=== PATIENT | female | born 1970 | race Two or more races ===

== ENCOUNTER → 2023-12-16 | Outpatient (CLI) | payer MEDICAID ==
[~2023-12-16] VITALS: Ht 162.6 cm; Wt 152.4 kg
[~2023-12-16] MED LIST: CARB200T4 PO; FERR325T50 PO; FUR40T PO; IBUP-1456 PO; OMEP20CA74 OR; PILO7.5T4 PO; POTA8TAB38 PO; RANI75SY PO; REGADENOSON 0.4 MG/5 ML SYRG IV ONE
== END | disposition home or self-care (01) ==
LOC: XYW 08:42
PROVIDERS: ATTEND Specialist
DX: R07.9 Chest pain, unspecified (principal); R06.02 Shortness of breath; R00.2 Palpitations; I10 Essential (primary) hypertension; E66.01 Morbid (severe) obesity due to excess calories
CPT/HCPCS: 78452; 93017; A9500

== ENCOUNTER 2025-05-31 00:05 | Inpatient (IN) | payer MEDICAID ==
[~2025-05-31] VITALS: Ht 162.6 cm; Wt 155.6 kg
[~2025-05-31 00:05] MED LIST changes: -REGADENOSON 0.4 MG/5 ML SYRG IV ONE
--- NOTE | 2025-05-31 01:17 | ED.PDOC ---
History of Present Illness(SKN HPI Comments 54-year-old female presents to ER for wound check. Patient reports that she has had a nonhealing wound to lateral aspect of left lower leg x two months with associated yellow purulent foul drainage to wound x2 weeks. She rates her current pain an 8/10 localized to wound of left lower leg without radiation. Denies use of medications for current symptoms and presents to ER ambulatory, in no distress. Denies fever, body aches, chills, calf pain, shortness of breath or any further symptoms/complaints Chief Complaint: Wound Check Time Seen by MD: 00:32 Primary Care Provider: Elías History of Present Illness: Nurses Notes, Medications, Allergies Allergies: Coded Allergies: NO KNOWN ALLERGIES (Unverified , 12/16/23) Home Meds Reported Medications Omeprazole (PRILOSEC) 20 Mg Cap, 20 MG OR BID, CAP 08/03/15 Carbamazepine (Carbamazepine) 200 Mg Tab, 200 MG PO 6XD for 30 Days, MG 08/03/15 Furosemide (LASIX TABLET) 40 Mg Tb, 40 MG PO DAILY 08/03/15 Potassium Chloride (Klor-Con 8) 8 Meq Tab, 8 MEQ PO BID, TAB 08/03/15 Ibuprofen (Ibuprofen) 800 Mg Tab, 1 TAB PO TID, #90 TAB 1 Refill 08/03/15 Pilocarpine Hcl (Oral) (Salagen) 7.5 Mg Tab, 5 MG PO BID, TAB 08/03/15 Ferrous Sulfate (Iron Supplement) 325 Mg Tab, 1 TAB PO DAILY, #30 TAB 10 Refills 08/03/15 Ranitidine Hcl (Ranitidine Hcl) 75 Mg/5 Ml Syp, 75 MG PO DAILY, SYP 08/03/15 Information Source: Patient Mode of Arrival: Ambulatory Past Medical History PAST MEDICAL HISTORY: High Lipids, HTN, Seizures Surgical History: Cholecystectomy PSYCHOTHERAPIST COUNSELOR History: No Pertinent PSYCHOTHERAPIST COUNSELOR History Family History Family History: Unknown Social History Smoker: Non-Smoker Alcohol: Denies ETOH Use Drugs: Denies Drug Use Lives In: Home Constitutional: denies: chills, diaphoresis, fatigue, fever, malaise, sweats, weakness, others EENTM: denies: blurred vision, double vision, ear bleeding, ear discharge, ear drainage, ear pain, ear ringing, eye pain, eye redness, hearing loss, mouth pain, mouth swelling, nasal discharge, nose bleeding, nose congestion, nose pain, photophobia, tearing, throat pain, throat swelling, voice changes, others Respiratory: denies: cough, hemoptysis, orthopnea, SOB at rest, shortness of breath, SOB with excertion, stridor, wheezing, others Cardiovascular: denies: chest pain, dizzy spells, diaphoresis, Dyspnea on exertion, edema, irregular heart beat, left arm pain, lightheadedness, palpitations, PND, syncope, others Gastrointestinal: denies: abdomen distended, abdominal pain, blood streaked bowels, constipated, diarrhea, dysphagia, difficulty swallowing, hematemesis, melena, nausea, poor appetite, poor fluid intake, rectal bleeding, rectal pain, vomiting, others Genitourinary: denies: abnormal vagina bleeding, burning, dyspareunia, dysuria, flank pain, frequency, hematuria, incontinence, pain, , vagina discharge, urgency, others Neurological: denies: dizziness, fainting, headache, left sided numbness, left sided weakness, numbness, paresthesia, pre-existing deficit, right sided numbness, right sided weakness, seizure, speech problems, tingling, tremors, weakness, others Musculoskeletal: denies: back pain, gout, joint pain, joint swelling, muscle pain, muscle stiffness, neck pain, others Integumetry: reports: others (As stated in HPI) Allergic/Immunocompromised: denies: Difficulty Healing, Frequent Infections, Hives, Itching, others Hematologic/Lymphatic: denies: anemia, blood clots, easy bleeding, easy bruising, swollen glands, others Endocrine: denies: excessive hunger, excessive sweating, excessive thirst, excessive urination, flushing, intolerance to cold, intolerance to heat, unexplained weight gain, unexplained weight loss, others Psychiatric: denies: anxiety, bipolar disorder, depression, hopeless, panic disorder, schizophrenia, sleepless, suicidal, others Physical Exam General Appearance: No Apparent Distress HEENT: PERRL/EOMI Neck: Full Range of Motion, Non-Tender, Normal Respiratory: Chest Non-Tender, Lungs Clear, No Accessory Muscle Use, No Respiratory Distress, Normal Breath Sounds Cardiovascular: No Murmur, No Gallop, Regular Rate/Rhythm Breast Exam: Deferred Gastrointestinal: NOT DONE Genitalia: Deferred Pelvic: Deferred Rectal: Deferred Extremities: No calf tenderness, Normal capillary refill, Normal range of motion Neurologic: Alert, No Motor Deficits, Normal Affect, Normal Mood, No Sensory Deficits Cerebellar Function: Normal Reflexes: Normal Skin: Dry, Warm, Other (3 cm x 3 cm foul smelling wound to left lower lateral leg with associated swelling/erythema/TTP surrounding wound edges) Lymphatic: No Adenopathy Was a procedure done? Was a procedure done?: No Sedation Sedation?: No Differential Diagnosis (INTG) Differential Diagnosis: Abrasion Differential Diagnosis: Abscess Differential Diagnosis: Neurovascular Injury Differential Diagnosis: Retained Foreign Body X-Ray, Labs, Meds, VS Vital Signs Date Time Temp Pulse Resp B/P (MAP) Pulse Ox O2 Delivery O2 Flow Rate FiO2 05/31/25 03:16 78 15 95 Room Air* 0 21 05/31/25 03:10 97.5 78 15 142/75 (97) 95 97.5 05/31/25 01:49 Room Air* 0 21 05/31/25 00:56 98.7 73 14 151/90 (110) 99 98.7 Lab Test 05/31/25 00:55 Range/Units White Blood Count 4.1 L 4.4-10.8 10^3/uL Red Blood Count 4.44 4.0-5.20 10^6/uL Hemoglobin 14.4 12.2-16.2 g/dL Hematocrit 42.1 36.0-46.0 % Mean Corpuscular Volume 94.9 80.0-100.0 fL Mean Corpuscular Hemoglobin 32.4 H 28.0-32.0 pg Mean Corpuscular Hemoglobin Concent 34.1 32.0-36.0 g/dL Red Cell Distribution Width 13.1 11.8-14.3 % Platelet Count 243 140-450 10^3/uL Mean Platelet Volume 7.2 6.9-10.8 fL Neutrophils (%) (Auto) 50.3 37.0-80.0 % Lymphocytes (%) (Auto) 34.1 10.0-50.0 % Monocytes (%) (Auto) 12.2 H 0.0-12.0 % Eosinophils (%) (Auto) 3.0 0.0-7.0 % Basophils (%) (Auto) 0.4 0.0-2.0 % Neutrophils # (Auto) 2.0 1.6-8.6 10 ^3/uL Lymphocytes # (Auto) 1.4 0.4-5.4 10 ^3/uL Monocytes # (Auto) 0.5 0-1.3 10 ^3/uL Eosinophils # (Auto) 0.1 0-0.8 10 ^3/uL Basophils # (Auto) 0 0-0.2 10 ^3/uL Nucleated Red Blood Cells 0.1 % Sodium Level 141 136-145 mmol/L Potassium Level 4.4 3.5-5.1 mmol/L Chloride Level 104 98-107 mmol/L Carbon Dioxide Level 30 20-31 mmol/L Anion Gap 7 5-15 Blood Urea Nitrogen 9 9-23 mg/dL Creatinine 0.59 0.550-1.02 mg/dL Glomerular Filtration Rate Calc 108 >90 mL/min BUN/Creatinine Ratio 15.3 10.0-20.0 Serum Glucose 99 74-106 mg/dL Lactic Acid Level 1.7 0.4-2.0 mmol/L Calcium Level 9.1 8.7-10.4 mg/dL Current Medications Medications (Trade) Dose Ordered Sig/Primo Route Start Time Stop Time Status Last Admin Ceftriaxone Sodium 50 ml @ 100 mls/hr ONCE ONCE IV 05/31/25 01:00 05/31/25 01:29 DC 05/31/25 01:47 Clindamycin Phosphate 50 ml @ 50 mls/hr ONCE ONCE IV 05/31/25 01:00 05/31/25 01:59 DC 05/31/25 02:07 PATIENT: THEA SWEET RACCT: [id number]: [id number] : 1970 LOC: ER ROOM / BED: / AGE / SEX: 54 / F ADM STATUS: REG ER SERVICE 0109 ORDERING PHYSICIAN: CORAL MCCAIN PROCEDURE(s): LTBFB - L TIB FIB XRAY REASON: left tib/fib pain ORDER NUMBER(s): [id number], ACCESSION NUMBER(s): [id number] CLINICAL INDICATION: left tib/fib pain TECHNIQUE: XY L TIB FIB XRAY Comparison: None FINDINGS/IMPRESSION: : There is no evidence of acute fracture or dislocation. Retrocalcaneal enthesopathy. Moderate bi malleolar soft tissue swelling. Soft tissues are otherwise unremarkable. ATED BY: BENJAMIN BURRIS MD DICTATED DATE/TIME: 05/31/25203 SIGNED BY: BENJAMIN BURRIS MD SIGNED DATE/TIME: 05/31/25203 CC: CBC reviewed-WBC 4.1 BMP reviewed without any significant abnormalities Lactic acid reviewed - normal Blood culture ordered Wound culture collected by nursing staff Left tib-fib x-ray reviewed Hep-Lock IV ordered Rocephin 1 g IV ordered Clindamycin 900 mg IV ordered Patient verbalized understanding and agreeable with current plan of care Patient admitted to hospitalist for cellulitis of left leg and need for IV antibiotics Time of 1ST Reevaluation: 00:32 Reevaluation 1ST: N/A Patient Education/Counseling: Diagnosis, Treatment, Prognosis, Need For Follow Up Family Education/Counseling: Diagnosis, Treatment, Prognosis, Need For Follow Up SEPSIS Sepsis Screen Date sepsis recognized/suspect: May 31, 2025 Time Sepsis recognized/suspect: 003 Recent Procedure: No On Antibiotic Therapy: No Respiratory Rate >20: No Heart Rate >90: No Temp<36 C (96.8 F) or >38.3 C: No SBP <90 or MAP <65 mmHG: No New Acute Mental Status Change: No Is the patient on CPAP, BIPAP,: No Physician Orders Wound Culture W/ Gs (05/31/25 00:47) Blood Culture (05/31/25 00:47) Heplock Iv (05/31/25 ) L Tib Fib Xray (05/31/25 01:09) Vital Signs Date Time Temp Pulse Resp B/P (MAP) Pulse Ox O2 Delivery O2 Flow Rate FiO2 05/31/25 03:16 78 15 95 Room Air* 0 21 05/31/25 03:10 97.5 78 15 142/75 (97) 95 97.5 05/31/25 01:49 Room Air* 0 21 05/31/25 00:56 98.7 73 14 151/90 (110) 99 98.7 Laboratory Tests Test 05/31/25 00:55 Lactic Acid Level 1.7 mmol/L (0.4-2.0) White Blood Count 4.1 10^3/uL (4.4-10.8) L Medications Medications Dose Ordered Sig/Primo Route Start Time Stop Time Status Last Admin Dose Admin Ceftriaxone Sodium 50 ml @ 100 mls/hr ONCE ONCE IV 05/31/25 01:00 05/31/25 01:29 DC 05/31/25 01:47 Clindamycin Phosphate 50 ml @ 50 mls/hr ONCE ONCE IV 05/31/25 01:00 05/31/25 01:59 DC 05/31/25 02:07 Departure 1 Departure Time of Disposition: 01:52 Impression: Primary Impression: Cellulitis of left leg Disposition: ADMITTED INPATIENT Condition: Stable Critical Care Note Critical Care Time?: No Stability Stability form required: No Heart Score Heart Score: Heart Score Response (Comments) Value History N/A 0 EKG N/A 0 Age N/A 0 Risk Factors N/A 0 Troponin N/A 0 Total 0 CORAL MCCAIN May 31, 2025 01:17
[2025-05-31 01:37] LABS: Hematocrit 42.1 % (36.0-46.0); Hemoglobin 14.4 g/dL (12.2-16.2); Mean Corpuscular Hemoglobin 32.4 pg (28.0-32.0); Mean Corpuscular Volume 94.9 fL (80.0-100.0); Nucleated Red Blood Cells % 0.1 %
[2025-05-31] MEDS: cefTRIAXone 1GM/50ML D5W 50 ML IV ONE (01:47)
[2025-05-31 01:59] LABS: Chloride 104 mmol/L (98-107); Sodium 141 mmol/L (136-145)
[2025-05-31 02:00] LABS: Anion Gap 7 (5-15); Calcium 9.1 mg/dL (8.7-10.4); Carbon Dioxide 30 mmol/L (20-31)
[2025-05-31 02:05] LABS: BUN/Creatinine Ratio 15.3 (10.0-20.0); Glucose 99 mg/dL (74-106)
[2025-05-31 02:06] LABS: Blood Urea Nitrogen 9 mg/dL (9-23); Potassium 4.4 mmol/L (3.5-5.1)
[2025-05-31] MEDS: CLINDAMYCIN 900MG IV 50 ML IV ONE (02:07)
--- NOTE | 2025-05-31 02:07 | DVH ---
CLINICAL INDICATION: left tib/fib pain TECHNIQUE: XY L TIB FIB XRAY Comparison: None FINDINGS/IMPRESSION: : There is no evidence of acute fracture or dislocation. Retrocalcaneal enthesopathy. Moderate bi malleolar soft tissue swelling. Soft tissues are otherwise unremarkable.
[2025-05-31 03:16] VITALS: PULSE 78; RESP 15; O2SAT 95
[2025-05-31] MEDS ORDERED: HYDROcodone-ACET 5/325MG TAB PO PRN (03:45)
[2025-05-31] MEDS ORDERED: ONDANSETRON HCL 4 MG/2 ML VIAL IV PRN (03:45)
--- NOTE | 2025-05-31 04:43 | DVHHP2 ---
History of Present Illness Reason for Visit: Open wound History of Present Illness 54-year-old female presents for evaluation of left lower extremity wound. Patient reports having a chronic wound to her left lower extremity for the past two years. She states that the wound had almost healed until two months ago it reopened and has progressively become worse. She states noticing maggots two days ago while her daughter was doing the wound treatment. Denies fever or chills. Reports pain to the area. Past Medical History Seizure, hypertension, dyslipidemia Past Surgical History Cholecystectomy Family History Noncontributory Smoke: No ALCOHOL: none Drugs: None Lives: with Family Review of Systems Review of Systems Review of systems are currently negative otherwise addressed in HPI. Allergies: Coded Allergies: NO KNOWN ALLERGIES (Unverified , 12/16/23) Medications Current Medications Medications Dose Ordered Sig/Primo Route Start Time Stop Time Status Last Admin Dose Admin Ceftriaxone Sodium 50 ml @ 100 mls/hr DAILY@09 IV 05/31/25 09:00 Clindamycin Phosphate 50 ml @ 50 mls/hr Q8HR IV 05/31/25 06:00 Amlodipine Besylate 5 mg DAILY PO 05/31/25 10:00 Atorvastatin Calcium 10 mg HS PO 05/31/25 22:00 Gabapentin 100 mg TID PO 05/31/25 06:00 Acetaminophen/ Hydrocodone Bitart 1 tab Q4HP PRN PO 05/31/25 03:45 Ondansetron HCl 4 mg Q4HP PRN IV 05/31/25 03:45 Acetaminophen 650 mg Q6HP PRN PO 05/31/25 03:45 Exam Vital Signs Vital Signs Date Time Temp Pulse Resp B/P (MAP) Pulse Ox O2 Delivery O2 Flow Rate FiO2 05/31/25 03:16 78 15 95 Room Air* 0 21 05/31/25 03:10 97.5 142/75 (97) 97.5 Exam Gen: 54-year-old female in mild distress, morbidly obese Skin: Warm, dry, normal color and texture, no rash. HEENT: Normocephalic atraumatic, mucous membranes moist and pink. Neck: Cervical and supraclavicular nodes normal without enlargement, trachea is midline, thyroid gland is normal without masses. Pulmonary: Clear to auscultation and percussion bilaterally. Cardiac: Regular rate and rhythm. No murmur Abdomen: Soft, nontender, nondistended, bowel sounds present all 4 quadrants, no guarding, no rigidity, no organomegaly. Extremities: No cyanosis, clubbing, , right lower extremity open wound with foul-smelling Neuro: Cranial nerves II through XII grossly intact, normal affect and speech, no focal motor deficits. Labs/Xrays ORDERING PHYSICIAN: CORAL MCCAIN PROCEDURE(s): LTBFB - L TIB FIB XRAY REASON: left tib/fib pain ORDER NUMBER(s): [id number], ACCESSION NUMBER(s): [id number] CLINICAL INDICATION: left tib/fib pain TECHNIQUE: XY L TIB FIB XRAY Comparison: None FINDINGS/IMPRESSION: : There is no evidence of acute fracture or dislocation. Retrocalcaneal enthesopathy. Moderate bi malleolar soft tissue swelling. Soft tissues are otherwise unremarkable. Labs Test 05/31/25 00:55 Range/Units White Blood Count 4.1 L 4.4-10.8 10^3/uL Red Blood Count 4.44 4.0-5.20 10^6/uL Hemoglobin 14.4 12.2-16.2 g/dL Hematocrit 42.1 36.0-46.0 % Mean Corpuscular Volume 94.9 80.0-100.0 fL Mean Corpuscular Hemoglobin 32.4 H 28.0-32.0 pg Mean Corpuscular Hemoglobin Concent 34.1 32.0-36.0 g/dL Red Cell Distribution Width 13.1 11.8-14.3 % Platelet Count 243 140-450 10^3/uL Mean Platelet Volume 7.2 6.9-10.8 fL Neutrophils (%) (Auto) 50.3 37.0-80.0 % Lymphocytes (%) (Auto) 34.1 10.0-50.0 % Monocytes (%) (Auto) 12.2 H 0.0-12.0 % Eosinophils (%) (Auto) 3.0 0.0-7.0 % Basophils (%) (Auto) 0.4 0.0-2.0 % Neutrophils # (Auto) 2.0 1.6-8.6 10 ^3/uL Lymphocytes # (Auto) 1.4 0.4-5.4 10 ^3/uL Monocytes # (Auto) 0.5 0-1.3 10 ^3/uL Eosinophils # (Auto) 0.1 0-0.8 10 ^3/uL Basophils # (Auto) 0 0-0.2 10 ^3/uL Nucleated Red Blood Cells 0.1 % Sodium Level 141 136-145 mmol/L Potassium Level 4.4 3.5-5.1 mmol/L Chloride Level 104 98-107 mmol/L Carbon Dioxide Level 30 20-31 mmol/L Anion Gap 7 5-15 Blood Urea Nitrogen 9 9-23 mg/dL Creatinine 0.59 0.550-1.02 mg/dL Glomerular Filtration Rate Calc 108 >90 mL/min BUN/Creatinine Ratio 15.3 10.0-20.0 Serum Glucose 99 74-106 mg/dL Lactic Acid Level 1.7 0.4-2.0 mmol/L Calcium Level 9.1 8.7-10.4 mg/dL SEPSIS Sepsis Screen Date sepsis recognized/suspect: May 31, 2025 Time Sepsis recognized/suspect: 321 Recent Procedure: No On Antibiotic Therapy: No Respiratory Rate >20: No Heart Rate >90: No Temp<36 C (96.8 F) or >38.3 C: No SBP <90 or MAP <65 mmHG: No New Acute Mental Status Change: No Is the patient on CPAP, BIPAP,: No Physician Orders Wound Culture W/ Gs (05/31/25 00:47) Blood Culture (05/31/25 00:47) Heplock Iv (05/31/25 ) L Tib Fib Xray (05/31/25 01:09) Ceftriaxone 1gm/50ml D5w (Rocephin) (05/31/25 09:00) Clindamycin 600mg Iv (Cleocin Iv) (05/31/25 06:00) Amlodipine Tablet (Norvasc Tablet) (05/31/25 10:00) Atorvastatin (Lipitor) (05/31/25 22:00) Gabapentin Capsule (Neurontin Capsule) (05/31/25 06:00) Basic Metabolic Panel (06/01/25 04:00) Admit (05/31/25 03:40) Hydrocodone-Acet 5/325mg Tab ([place] 5/32 (05/31/25 03:45) Ondansetron Hcl (Zofran) (05/31/25 03:45) Complete Blood Count (06/01/25 04:00) Cardiac Diet-2gna,Lofat,Lochol (05/31/25 Breakfast) Condition: Stable (05/31/25 03:40) Acetaminophen Tablet (Tylenol Tablet) (05/31/25 03:45) Bedrest With Bathroom Privileg (05/31/25 03:40) * Wound Consult (05/31/25 ) Vital Signs Date Time Temp Pulse Resp B/P (MAP) Pulse Ox O2 Delivery O2 Flow Rate FiO2 05/31/25 03:16 78 15 95 Room Air* 0 21 05/31/25 03:10 97.5 78 15 142/75 (97) 95 97.5 05/31/25 01:49 Room Air* 0 21 05/31/25 00:56 98.7 73 14 151/90 (110) 99 98.7 Laboratory Tests Test 05/31/25 00:55 Lactic Acid Level 1.7 mmol/L (0.4-2.0) White Blood Count 4.1 10^3/uL (4.4-10.8) L Medications Medications Dose Ordered Sig/Primo Route Start Time Stop Time Status Last Admin Dose Admin Ceftriaxone Sodium 50 ml @ 100 mls/hr ONCE ONCE IV 05/31/25 01:00 05/31/25 01:29 DC 05/31/25 01:47 100 MLS/HR Clindamycin Phosphate 50 ml @ 50 mls/hr ONCE ONCE IV 05/31/25 01:00 05/31/25 01:59 DC 05/31/25 02:07 50 MLS/HR Assessment/Plan Assessment/Plan Assessment Left lower extremity cellulitis Nonhealing wound Hypertension Morbid obesity Plan [facility] Rocephin/clindamycin Wound consult Wound culture pending Resume home medications Continue treatment per orders. Plan discussed with: Patient My Orders Orders - LIDYA BRAVO Procedure Category Date Status Time Ceftriaxone 1gm/50ml PHA 05/31/25 In Process D5w (Rocephin) 09:00 Clindamycin 600mg Iv PHA 05/31/25 In Process (Cleocin Iv) 06:00 Amlodipine Tablet PHA 05/31/25 In Process (Norvasc Tablet) 10:00 Atorvastatin (Lipitor) PHA 05/31/25 In Process 22:00 Gabapentin Capsule PHA 05/31/25 In Process (Neurontin Capsule) 06:00 Basic Metabolic Panel LAB 06/01/25 Verified 04:00 Admit ADMIT 05/31/25 Transmitted 03:40 Hydrocodone-Acet PHA 05/31/25 In Process 5/325mg Tab ([place] 03:45 Ondansetron Hcl PHA 05/31/25 In Process (Zofran) 03:45 Complete Blood Count LAB 06/01/25 Verified 04:00 Cardiac DIET 05/31/25 Transmitted Diet-2gna,Lofat,Lochol Breakfast Condition: Stable MARTA 05/31/25 In Process 03:40 Acetaminophen Tablet PHA 05/31/25 In Process (Tylenol Tablet) 03:45 Bedrest With Bathroom MARTA 05/31/25 In Process Privileg 03:40 * Wound Consult CONS 05/31/25 Verified Date of Service: May 31, 2025 Billing Provider: LIDYA BRAVO Common Visit Codes: [id number] INP/OBS CARE (MOD) LIDYA BRAVO May 31, 2025 04:43
[2025-05-31] MEDS: GABAPENTIN 100 MG CAP PO SCH (06:07)
[2025-05-31] MEDS: CLINDAMYCIN 600MG IV 50 ML IV SCH (06:07)
[2025-05-31 08:25] VITALS: PULSE 69; RESP 12; O2SAT 91
[2025-05-31] MEDS: cefTRIAXone 1GM/50ML D5W 50 ML IV SCH (09:07)
[2025-05-31 18:21] VITALS: BP 123/65; PULSE 77; RESP 18; TEMP 98.1; O2SAT 95
[2025-05-31 20:00] VITALS: RESP 18; O2SAT 95
[2025-05-31 21:00] VITALS: BP 146/86; PULSE 82; RESP 18; TEMP 97.9; O2SAT 95
[2025-05-31] MEDS: ATORVASTATIN 20 MG TAB PO SCH (22:46)
[2025-06-01] MEDS: ACETAMINOPHEN 325 MG TAB PO PRN (00:39)
[2025-06-01 05:00] VITALS: BP 128/72; PULSE 75; RESP 17; TEMP 98.2; O2SAT 96
[2025-06-01 05:46] LABS: Hematocrit 38.4 % (36.0-46.0); Hemoglobin 13.4 g/dL (12.2-16.2); Mean Corpuscular Hemoglobin 32.7 pg (28.0-32.0); Mean Corpuscular Volume 94.1 fL (80.0-100.0); Nucleated Red Blood Cells % 0.0 %
[2025-06-01 05:51] LABS: Anion Gap 6 (5-15); Carbon Dioxide 30 mmol/L (20-31); Chloride 104 mmol/L (98-107); Potassium 3.5 mmol/L (3.5-5.1); Sodium 140 mmol/L (136-145)
[2025-06-01 05:52] LABS: Calcium 8.9 mg/dL (8.7-10.4)
[2025-06-01 05:57] LABS: BUN/Creatinine Ratio 12.0 (10.0-20.0); Blood Urea Nitrogen 9 mg/dL (9-23)
[2025-06-01 05:58] LABS: Glucose 118 mg/dL (74-106)
[2025-06-01 10:15] VITALS: BP 105/61; PULSE 84; RESP 18; TEMP 98.3; O2SAT 94
[2025-06-01] MEDS ORDERED: CIPR500T4 PO (11:45)
[2025-06-01 13:00] VITALS: BP 126/88; PULSE 76; RESP 18; TEMP 97.4; O2SAT 96
--- NOTE | 2025-06-01 17:02 | DVHDS2 ---
Discharge Summary Date of Admission May 31, 2025 at 03:40 Date of Discharge: Jun 01, 2025 Labs/Diagnostic Data: Laboratory Results Test 06/01/25 05:02 05/31/25 00:55 White Blood Count 3.6 10^3/uL (4.4-10.8) Red Blood Count 4.09 10^6/uL (4.0-5.20) Hemoglobin 13.4 g/dL (12.2-16.2) Hematocrit 38.4 % (36.0-46.0) Mean Corpuscular Volume 94.1 fL (80.0-100.0) Mean Corpuscular Hemoglobin 32.7 pg (28.0-32.0) Mean Corpuscular Hemoglobin Concent 34.8 g/dL (32.0-36.0) Red Cell Distribution Width 13.0 % (11.8-14.3) Platelet Count 223 10^3/uL (140-450) Mean Platelet Volume 7.0 fL (6.9-10.8) Neutrophils (%) (Auto) 45.5 % (37.0-80.0) Lymphocytes (%) (Auto) 39.6 % (10.0-50.0) Monocytes (%) (Auto) 10.3 % (0.0-12.0) Eosinophils (%) (Auto) 4.0 % (0.0-7.0) Basophils (%) (Auto) 0.6 % (0.0-2.0) Neutrophils # (Auto) 1.6 10 ^3/uL (1.6-8.6) Lymphocytes # (Auto) 1.4 10 ^3/uL (0.4-5.4) Monocytes # (Auto) 0.4 10 ^3/uL (0-1.3) Eosinophils # (Auto) 0.1 10 ^3/uL (0-0.8) Basophils # (Auto) 0 10 ^3/uL (0-0.2) Nucleated Red Blood Cells 0.0 % Sodium Level 140 mmol/L (136-145) Potassium Level 3.5 mmol/L (3.5-5.1) Chloride Level 104 mmol/L (98-107) Carbon Dioxide Level 30 mmol/L (20-31) Anion Gap 6 (5-15) Blood Urea Nitrogen 9 mg/dL (9-23) Creatinine 0.75 mg/dL (0.550-1.02) Glomerular Filtration Rate Calc 95 mL/min (>90) BUN/Creatinine Ratio 12.0 (10.0-20.0) Serum Glucose 118 mg/dL (74-106) Calcium Level 8.9 mg/dL (8.7-10.4) Lactic Acid Level 1.7 mmol/L (0.4-2.0) Other Laboratory Tests 06/01/25 05:02 Brief Hx & Hospital Course: 54-year-old female presents for evaluation of left lower extremity wound. Patient reports having a chronic wound to her left lower extremity for the past two years. She states that the wound had almost healed until two months ago it reopened and has progressively become worse. She states noticing maggots two days ago while her daughter was doing the wound treatment. Denies fever or chills. Reports pain to the area. Cellulitis improved seen by wound care no maggots noted on exam Condition at Discharge: Good Final Diagnosis/Problems List cellulitis Discharge Disposition: Home with Health Services Discharge Instruct/Medications Diet: Regular Activity: No Restrictions, As Tolerated Follow Up/Referral: pcp in 7 days Medications: ciprofloxacin Scheduled Carbamazepine (Carbamazepine), 200 MG PO 6XD, (Reported) Ciprofloxacin Hcl (Ciprofloxacin Hcl), 1 TAB PO BID Ferrous Sulfate (Iron Supplement), 1 TAB PO DAILY, (Reported) Furosemide (Lasix Tablet), 40 MG PO DAILY, (Reported) Ibuprofen (Ibuprofen), 1 TAB PO TID, (Reported) Omeprazole (Prilosec), 20 MG OR BID, (Reported) Pilocarpine Hcl (Oral) (Salagen), 5 MG PO BID, (Reported) Potassium Chloride (Klor-Con 8), 8 MEQ PO BID, (Reported) Ranitidine Hcl (Ranitidine Hcl), 75 MG PO DAILY, (Reported) Discharge Statement: "Patient was advised to return to the ER or call 911 if any headaches, dizziness, shortness of breath, chest pain, abdominal pain, bleeding, fevers, or worsening of medical condition. Patient was counseled about treatment plan, medications, possible side effects, patientverbalized understanding. All questions were answered to the best of my ability. This discharge took greater then 30 minutes in planning, reviewing documentation, counseling the patient, and discussing with other team members." ASSESSMENT ASSESSMENT Assessment cellulitis Date of Service: Jun 01, 2025 Billing Provider: PRISCILLA SILVER MD Common Visit Codes: [id number]/OBS DISCH DAY >30min PRISCILLA SILVER MD Jun 01, 2025 17:02
== END 2025-06-01 18:07 | disposition home health service (06) | DRG 383 ==
LOC: ER 00:05 → OVERFLOW 03:40 → EAST 17:48
PROVIDERS: ADMIT Hospitalist; ATTEND Hospitalist
DX: L03.116 Cellulitis of left lower limb (principal); Z68.43 Body mass index [BMI] 50.0-59.9, adult; E66.01 Morbid (severe) obesity due to excess calories; I10 Essential (primary) hypertension; E78.5 Hyperlipidemia, unspecified; Z90.49 Acquired absence of other specified parts of digestive tract
CPT/HCPCS: 36415; 73590; 80048; 83605; 85025; 87040; 87205; G0378; J3490